=== PATIENT | male | born 1955 | race Caucasian/White ===

== ENCOUNTER 2016-12-24 07:21 | Emergency (ER) | payer OTHER ==
[2016-12-24] MEDS ORDERED: ONDANSETRON HCL IV 4 MG/2 ML VIAL IV ONE (07:40)
[2016-12-24] MEDS ORDERED: 0.9 % SODIUM CHLORIDE 1000ML 1,000 ML IV ONE (07:40)
--- NOTE | 2016-12-24 07:44 | Emergency Department Record ---
History of Present Illness - General Chief Complaint: Back Pain/Injury Stated Complaint: BACK PAIN GOES DOWN LEG Time Seen by Provider: 12/24/16 07:40 Source: Patient Mode of Arrival: Ambulatory Limitations: No limitations - History of Present Illness Initial Comments: 61 yo male presents with left flank pain that started around 2am. The pain is sharp and radiates around the left abdomen. Some pain radiates down the leg. No hematuria. he has known back degenerative changes but that is usually on the right. No vomiting or diarrhea. No history of back surgery, renal stones. No PCP. He is not on any medications. MD Complaint: Back pain Onset/Timin -: Hour(s) Similar Symptoms Previously: No Radiation: Abdomen, Left leg Quality: Sharp, Stabbing Consistency: Constant Improves With: None Worsens With: None Context: Unknown Treatments Prior to Arrival: Acetaminophen - Related Data Previous Rx's Medication Instructions Recorded Cyclobenzaprine HCl [Flexeril] 10 mg PO TID #12 tablet 12/24/16 Hydrocodone/Acetaminophen [[place] 1 tab PO Q8H PRN #12 tab 12/24/16 5mg/325mg] Allergies Allergy/AdvReac Type Severity Reaction Status Date / Time Penicillins Allergy breathing Verified 12/24/16 07:33 difficulty Travel Screening - Travel/Exposure Within Last 30 Days Have you traveled within the last 30 days?: No - Travel/Exposure Within Last Year Have you traveled outside the [place] in the last year?: No - Additonal Travel Details Have you been exposed to anyone with a communicable illness?: No - Travel Symptoms Symptom Screening: None Review of Systems Constitutional: Denies: Chills, Fever, Malaise, Weakness Eyes: Denies: Eye discharge ENT: Denies: Congestion, Throat pain Respiratory: Denies: Cough Cardiovascular: Denies: Chest pain, Palpitations, Syncope Endocrine: Denies: Fatigue Gastrointestinal: Reports: Abdominal pain. Denies: Diarrhea, Nausea, Vomiting Genitourinary: Denies: Frequency, Hematuria, Urgency Musculoskeletal: Reports: Back pain. 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) - GI Hx GI Disorders: Yes Hx Reflux: Yes (spicy foods) - Hx Genitourinary Disorders: No - ENDOCRINE Hx Endocrine Disorders: No - MUSCULOSKELETAL Hx Musculoskeletal Disorders: Yes Hx Arthritis: Yes (hands back) - PSYCH Hx Psych Problems: No - HEMATOLOGY/ONCOLOGY Hx Hematology/Oncology Disorders: No Family Medical History Any Significant Family History?: Yes Hx Cancer: Father, Brother/Sister Hx Heart Disease: Brother/Sister Hx HTN: Mother Physical Exam - General General Appearance: Alert, Oriented x3, Cooperative, No acute distress Limitations: No limitations - Head Head exam: Normal inspection - Eye Eye exam: Normal appearance, PERRL - ENT ENT exam: Normal exam Ear exam: Normal external inspection Nasal Exam: Normal inspection Mouth exam: Normal external inspection Teeth exam: Normal inspection Throat exam: Normal inspection - Neck Neck exam: Normal inspection, Full ROM. negative: Tenderness - Respiratory Respiratory exam: Normal lung sounds bilaterally. negative: Respiratory distress - Cardiovascular Cardiovascular Exam: Regular rate, Normal rhythm, Normal heart sounds - GI/Abdominal GI/Abdominal exam: Soft, Normal bowel sounds. negative: Diminished bowel sounds , Distended, Guarding, Pulsatile mass, Rebound, Tenderness - Rectal Rectal exam: Deferred - exam: Deferred - Extremities Extremities exam: Normal inspection, Full ROM, Normal capillary refill. negative: Tenderness - Back Back exam: Reports: Normal inspection, Full ROM, Other (Normal inspection, non tender on examination). Denies: CVA tenderness (R), CVA tenderness (L), Muscle spasm, Paraspinal tenderness, Rash noted, Tenderness, Vertebral tenderness - Neurological Neurological exam: Alert, Normal gait, Oriented X3. negative: Altered, Motor sensory deficit - Psychiatric Psychiatric exam: Normal affect, Normal mood - Skin Skin exam: Dry, Intact, Normal color, Warm Course Vital Signs 12/24/16 07:23 Temperature 98.6 F Pulse Rate 82 Respiratory 20 Rate Blood Pressure 160/103 Pulse Ox 96 - Reevaluation(s) Reevaluation #1: The labs were reviewed No acute changes on the CBC,CMP,Lipase 03/03/17 08:37 Reevaluation #2: The patient reports the pain is well controlled at this time. 12/24/16 08:47 Reevaluation #3: The CT scan demonstrates extensive degenerative changes in the spine. No acute process otherwise. No renal stones or other acute processes. 12/24/16 08:48 Reevaluation #4: UA is negative 12/24/16 09:28 Medical Decision Making - Lab Data Result diagrams: 12/24/16 07:45 12/24/16 07:45 Disposition Disposition: Discharge Clinical Impression: Lumbar pain Qualifiers: Chronicity: acute Back pain laterality: left Sciatica presence: with sciatica Sciatica laterality: sciatica of left side Qualified Code(s): M54.42 - Lumbago with sciatica, left side Sciatica Qualifiers: Laterality: left Qualified Code(s): M54.32 - Sciatica, left side Disposition: Home, Self-Care Condition: (1) Good Instructions: Low Back Strain (ED), Sciatica (ED) Additional Instructions: Rest and avoid lifting or bending to much Call the [facility] to establish a new doctor for your recommended routine health care. Prescriptions: Cyclobenzaprine HCl [Flexeril] 10 mg PO TID #12 tablet Hydrocodone/Acetaminophen [[place] 5mg/325mg] 1 tab PO Q8H PRN #12 tab PRN Reason: Pain - General Forms: Patient Portal Access Time of Disposition: 09:28
[2016-12-24] MEDS ORDERED: MORPHINE SULFATE 5 MG/ML PFS IVP ONE (07:54)
[2016-12-24 08:00] LABS: BASO % 0.6 % (0-6); EOS % 0.6 % (0-6); HEMATOCRIT 45.9 % (42.0-52.0); HEMOGLOBIN 15.6 gm/dl (14.0-18.0); LYMPH % 14.8 % (16-45); MEAN CELL VOLUME 81.4 fl (81-97); MEAN CORPUSCULAR HEMOGLOBIN 27.7 pg (27-33); MEAN PLATELET VOLUME 11.5 fl (7.4-10.4); PLATELET COUNT 222 K/uL (130-400); RED BLOOD COUNT 5.64 M/uL (4.40-5.70); RED CELL DISTRIBUTION WIDTH 13.3 % (11.5-14.5); WHITE BLOOD COUNT W/O DIFF 8.6 K/uL (4.2-12.2)
[2016-12-24 08:06] LABS: ALBUMIN 4.8 gm/dL (3.5-5.0); ALKALINE PHOSPHATASE 89 U/L (38-126); ALT/SGPT 71 U/L (21-72); ANION GAP 13.9 (7-16); AST/SGOT 53 U/L (17-59); BILIRUBIN,TOTAL 1.02 mg/dL (0.2-1.3); BLOOD UREA NITROGEN 21 mg/dL (9-20); CARBON DIOXIDE 24.1 mmol/L (22-30); CREATININE 1.2 mg/dL (0.66-1.25); EST GLOMERULAR FILTRATION RATE > 60 ml/min; GLUCOSE,RANDOM 154 mg/dL (70-110); LIPASE 128 U/L (23-300)
[2016-12-24 09:17] LABS: URINE APPEARANCE CLEAR; URINE BILIRUBIN NEGATIVE (NEGATIVE); URINE BLOOD NEGATIVE (NEGATIVE); URINE COLOR YELLOW; URINE GLUCOSE (UA) NEGATIVE (NEGATIVE); URINE KETONE TRACE (NEGATIVE); URINE LEUKOCYTE ESTERASE NEGATIVE (NEGATIVE); URINE NITRITE NEGATIVE (NEGATIVE); URINE PROTEIN NEGATIVE (NEGATIVE); URINE UROBILINOGEN 0.2 E.U./dL (0.20 - 1.00)
== END 2016-12-24 09:45 | disposition home or self-care (01) ==
LOC: ER 07:21
DX: M54.42 Lumbago with sciatica, left side (principal)
CPT/HCPCS: 99284 ×2; 96374; 83690; 85025; 80076; 80048; 81003; 74176; J2270; J7030